=== PATIENT | female | born 1960 ===

== ENCOUNTER 2018-12-21 06:45 | Outpatient (CLI) | payer OTHER ==
[2018-12-22] MEDS ORDERED: SYNTHROID50 MCG (12:33)
[2018-12-22] MEDS ORDERED: CITALOPRAM20 MG/10 M (12:33)
== END 2018-12-21 12:12 | disposition home or self-care (01) ==
LOC: LAB 06:45
DX: N95.0 Postmenopausal bleeding (principal)

== ENCOUNTER → 2018-12-29 | Day surgery (SDC) | payer OTHER ==
[~2018-12-29] MED LIST: CITALOPRAM20 MG/10 M; SYNTHROID50 MCG
== END | disposition home or self-care (01) ==
LOC: ADM 12-22 09:30 → CIR.AMB 07:00
DX: N95.0 Postmenopausal bleeding (principal); D25.0 Submucous leiomyoma of uterus

== ENCOUNTER 2024-04-04 05:35 | Day surgery (SDC) | payer OTHER ==
[~2024-04-04 05:35] MED LIST changes: +CELEXA40 MG PO; +FOSAMAX70 MG PO; +XIIDRA1 EACH OTIC
[2024-04-04] MEDS ORDERED: CHLORHEXIDINE GLUCONATE 120 ML BOTTLE TOP ONE (07:27)
[2024-04-04] MEDS ORDERED: POVIDONE-IODINE 118 ML BOTT TOP ONE (07:27)
[2024-04-04] MEDS ORDERED: CEFAZOLIN SODIUM 1,000 MG VIAL ONE (07:28)
== END 2024-04-04 13:15 | disposition home or self-care (01) ==
LOC: CIR.AMB 05:35
PROVIDERS: ATTEND Obstetrics & Gynecology Gynecology
DX: N35.82 Other urethral stricture, female (principal); R35.0 Frequency of micturition; R39.12 Poor urinary stream; E03.8 Other specified hypothyroidism